=== PATIENT | male | born 2000 ===

== ENCOUNTER 2024-09-02 06:59 | Emergency (ER) | payer SELFPAY ==
[2024-09-02] MEDS: Ondansetron 4 MG/2 ML SDV IVPUSH ONE (07:52)
[2024-09-02] MEDS: Sodium Chloride 0.9% 1,000 ML IV SCH (07:52)
[2024-09-02] MEDS: Ketorolac 30 MG/ML SDV IVPUSH ONE (07:52)
[2024-09-02 08:26] LABS: A/G RATIO 1.2 (0.9-1.6); ALANINE AMINOTRANSFERASE,ALT 23 IU/L (14-63); ALBUMIN 4.2 g/dL (3.4-5.0); ALKALINE PHOSPHATASE 87 U/L (46-116); ASPARTATE AMNIOTRANSFERASE,AST 16 IU/L (15-37); BILIRUBIN TOTAL 0.7 mg/dL (0.2-1.0); BLOOD UREA NITROGEN,BUN 14 mg/dL (7.0-18.0); CALCIUM 8.9 mg/dL (8.5-10.1); CARBON DIOXIDE,CO2 23.9 mmol/L (21.0-32.0); CHLORIDE,CL 101 mmol/L (98-107); CREATININE 1.2 mg/dL (0.8-1.3); GLUCOSE RANDOM 105 mg/dL (74-106); MAGNESIUM 2.2 mg/dL (1.8-2.4); POTASSIUM,K 3.8 mmol/L (3.5-5.1); PROTEIN TOTAL,TP 7.7 g/dL (6.4-8.2); SODIUM,NA 137 mmol/L (136-148)
[2024-09-02 08:30] LABS: BASOPHILS ABSOLUTE AUTO 0.02 K/uL (0.00-0.20); BASOPHILS PERCENT AUTO 0.3 % (0.0-1.0); EOSINOPHILS ABSOLUTE AUTO 0.02 K/uL (0.00-0.45); EOSINOPHILS PERCENT AUTO 0.3 % (0.0-6.0); HEMATOCRIT 44.1 % (42.0-52.0); HEMOGLOBIN 15.2 g/dL (14.0-18.0); IMMATURE GRAN ABSOLUTE AUTO 0.02 K/uL (0.00-0.05); IMMATURE GRAN PERCENT AUTO 0.3 % (0.0-0.4); LYMPHOCYTES ABSOLUTE AUTO 0.85 K/uL (1.00-4.80); LYMPHOCYTES PERCENT AUTO 10.8 % (24.0-44.0); MEAN CORPUSCULAR HEMOGLOBIN 30.8 pg (28.0-32.0); MEAN CORPUSCULAR HGB CONC 34.5 g/dL (32.0-36.0); MEAN CORPUSCULAR VOLUME 89.3 fL (83.0-99.0); MEAN PLATELET VOLUME 9.8 fL (9.4-12.4); MONOCYTES ABSOLUTE AUTO 0.77 K/uL (0.00-0.80); MONOCYTES PERCENT AUTO 9.8 % (0.0-8.0); NEUTROPHILS ABSOLUTE AUTO 6.21 K/uL (1.80-7.70); NEUTROPHILS PERCENT AUTO 78.5 % (41.0-71.0); PLATELET COUNT,PLT 203 K/uL (150-400); RED BLOOD CELL COUNT 4.94 M/uL (4.52-5.90); WHITE BLOOD CELL COUNT,WBC 7.89 K/uL (3.9-11.3)
[2024-09-02 08:37] LABS: ESTIMATED GFR 88 mL/min (>60)
== END 2024-09-02 09:18 | disposition home or self-care (01) ==
LOC: MW.ED 06:59
DX: J10.1 Influenza due to other identified influenza virus with other respiratory manifestations (principal)
CPT/HCPCS: 36415; 80053; 83735; 85025; 87428; 96361; 96374; 96375; 99284; J1885; J2405; J7030; 99283

== ENCOUNTER 2025-03-09 09:35 | Emergency (ER) | payer SELFPAY ==
[2025-03-09] MEDS: Ketamine 500 mg/10 ML MDV IV ONE (10:00)
[2025-03-09] MEDS: Propofol 200 MG/20 ML SDV IVPUSH ONE (10:00)
[2025-03-09] MEDS ORDERED: Sodium Chloride 0.9% 2.5 ML Syringe FLUSH PRN (10:15)
[2025-03-09] MEDS ORDERED: Sodium Chloride 0.9% 10 ML Syringe FLUSH PRN (10:15)
[2025-03-09] MEDS: Ondansetron 4 MG/2 ML SDV IVPUSH ONE (10:51)
== END 2025-03-09 13:47 | disposition home or self-care (01) ==
LOC: MW.ED 09:35
DX: S93.315A Dislocation of tarsal joint of left foot, initial encounter (principal); Z79.899 Other long term (current) drug therapy; X50.1XXA Overexertion from prolonged static or awkward postures, initial encounter; Y93.01 Activity, walking, marching and hiking
CPT/HCPCS: 28570; 73552; 73590; 73610; 73630; 73650; 96361; 96374; 96375; 99152; 99283; J1171; J2405; J3490; J7030; J2704